=== PATIENT | male | born 1965 | race Caucasian/White ===

== ENCOUNTER 2024-11-18 06:57 | Observation (INO) | payer MEDICAID, SELFPAY ==
[2024-11-18] VITALS (14 sets, daily range): BP systolic 120–195; BP diastolic 75–116; PULSE 65–104; RESP 15–96; TEMP 36.5–37.7; O2SAT 94–98; BMI 36.0
--- NOTE | 2024-11-18 07:41 | XR_ITS ---
Examination: CT abdomen and pelvis without contrast. Coronal 3-D reconstructions. Sagittal 2-D reconstructions. Date and time of exam:November 18, 2024,, 0908 hours INDICATIONS: Left-sided abdominal pain flank pain with nausea today CTDI: vol (mGy): 13.4 DLP: (mGycm): 945 Technique: Axial images of the abdomen have been obtained, 3 mm slice thickness Intravenous contrast material has not been administered. Low dose protocols were performed. One or more of the following dose reduction techniques were used; automated exposure control, adjustment of the mA and/or KV according to patient size, use of iterative reconstruction technique. Findings: Fatty infiltration throughout the liver. Liver or splenic lesions No gallstones No pancreatic mass No renal calculi, masses The entire right colon shows inflammatory change Possible appendicolith No bowel obstruction No diverticulitis Transpedicular the pelvis Contracted urinary bladder Advanced disc narrowing of L3-L4 IMPRESSION: Recommend repeat CT examination abdomen pelvis post contrast to exclude acute appendicitis
--- NOTE | 2024-11-18 07:41 | XR_ITS ---
Examination: Abdomen sonogram, Limited Date and time of exam: November 10, 2024, 0810 hours INDICATIONS: Right upper abdominal pain this week Technique: Real-time schumacher scale transabdominal sonographic images of the upper abdomen obtained. Findings: Gallbladder sludge, small gallstones Normal gallbladder wall 0.3 cm Common bile duct 0.4 cm Pancreas obscured by bowel gas Hepatomegaly 21.8 cm fatty infiltration Normal hepatopedal portal venous flow Patent IVC IMPRESSION: Cholelithiasis, negative for cholecystitis Significant hepatomegaly
--- NOTE | 2024-11-18 07:42 | PD.EDRME ---
Rapid Medical Screening Exam RME Arrival date/time: 11/18/24 06:57 59-year-old male presents to the Emergency Department today for complaint of nausea vomiting abdominal pain Chief Complaint: Abdominal Pain Vital signs: Vital Signs Temperature 98.8 F 11/18/24 07:38 Pulse Rate 100 11/18/24 07:38 Respiratory Rate 18 11/18/24 07:38 Blood Pressure 195/104 H 11/18/24 07:38 Pulse Oximetry (%) 98 11/18/24 07:38 Oxygen Delivery Method Room Air 11/18/24 07:38
[2024-11-18] MEDS: KETOROLAC INJ 30 MG/ML VIAL IM (07:52)
[2024-11-18] MEDS: METOCLOPRAMIDE INJ 5 MG/ML VIAL 2 ML 10 MG IM (07:54)
[2024-11-18 08:53] LABS: Collection Type, Urine Clean Catch
[2024-11-18 09:02] LABS: Bilirubin,Urine Negative (Negative); Blood,Urine Negative (Negative); Clarity,Urine Clear (Clear/Hazy); Color,Urine Yellow (Lt Yel-Yel); Culture Indicated,Urine Not Indicated; Glucose, Urine Negative (Negative); Ketones,Urine Negative (Negative); Leukocyte Esterase,Urine Negative (Negative); Nitrite,Urine Negative (Negative); PH,Urine 5.5 (5.0-7.0); Protein,Urine Trace (Neg - Trace); RBC,Urine 2 /hpf (0-3); Specific Gravity,Urine 1.032 (1.001-1.035); Squamous Epithelial Cell,Urine < 1 /hpf (0-5); Urobilinogen,Urine Negative mg/dL (0.0-1.0); WBC,Urine 1 /hpf (0-5)
[2024-11-18 09:30] LABS: Basophils # (Auto) 0.0 Thou/mm3 (0.0-0.2); Basophils % (Auto) 0 % (0-2.5); Eosinophils # (Auto) 0.0 Thou/mm3 (0.0-0.5); Eosinophils % (Auto) 0 % (0-10); Hematocrit 42.7 % (41.0-53.0); Hemoglobin 15.0 g/dL (13.5-16.0); Immature Granulocytes Auto 0.04 Thou/mm3 (0.00-0.00); Lymphocytes # (Auto) 0.6 Thou/mm3 (1.0-4.8); Lymphocytes % (Auto) 6 % (10-50); Mean Corpuscular HGB Conc 35.1 g/dl (31.0-37.0); Mean Corpuscular Hemoglobin 31.8 pg (25.0-35.0); Mean Corpuscular Volume 91 fL (80-100); Monocytes # (Auto) 0.8 Thou/mm3 (0.0-0.8); Monocytes % (Auto) 8 % (0-12); Neutrophils # (Auto) 9.4 Thou/mm3 (1.8-7.7); Neutrophils % (Auto) 86 % (37-80); Nucleated Red Blood Cell # 0.00 Thou/mm3 (0.00-0.00); Nucleated Red Blood Cell % 0 /100 WBC (0); Platelet Count 209 Thou/mm3 (140-440); RDW Standard Deviation 41.0 fL (35.1-43.9); Red Blood Count 4.72 Miln/mm3 (4.50-5.90); White Blood Count 10.9 Thou/mm3 (3.8-10.6)
[2024-11-18 09:53] LABS: Alanine Aminotransferase 14 U/L (10-49); Albumin, Serum 4.4 gm/dL (3.5-5.0); Albumin/Globulin Ratio 1.8 (1.2-2.2); Alkaline Phosphatase 107 U/L (46-116); Anion Gap 10 (7-16); Aspartate Amino Transferase 15 U/L (0-34); BUN/Creatinine Ratio 18 Ratio (12-20); Bilirubin,Total 0.7 mg/dL (0.3-1.2); Blood Urea Nitrogen 14 mg/dL (9-23); Calcium 9.8 mg/dL (8.3-10.6); Calcium (Corrected) 9.8 mg/dL (8.5-10.1); Carbon Dioxide 23.5 mMol/L (20.0-31.0); Chloride 104 mMol/L (98-107); Creatinine (Component) 0.8 mg/dL (0.6-1.3); Estimated Creatinine Clearance 137.1 mL/min (>60); Globulin 2.4 gm/dL (2.3-3.5); Glucose 126 mg/dL (74-106); Lipase 25 U/L (12-53); Osmolality,Calculated 276 (275-295); Potassium 3.9 mMol/L (3.4-5.1); Sodium 137 mMol/L (136-145); Total Protein 6.8 gm/dL (5.7-8.2); eGFR > 60 See Note
--- NOTE | 2024-11-18 11:36 | XR_ITS ---
Examination: CT abdomen with intravenous contrast CT pelvis with intravenous contrast 2-D coronal reconstructions 2-D sagittal reconstructions Date and time of exam:November 18, 2024, 1253 hours, comparison November 18, 2024 0911 hours noncontrast study INDICATIONS: Right lower abdominal pain beginning today. CTDI: vol (mGy) 13.4 DLP: (mGycm) 981 Technique: Multiple axial sections of the abdomen and pelvis have been obtained. 64 slice high-resolution scanner used. 3 mm axial sections have been obtained, post intravenous injection 60 cc [id number]-[id number] 2-D sagittal, coronal reconstructions obtained. Low dose protocols were performed. One or more of the following dose reduction techniques were used; automated exposure control, adjustment of the mA and/or KV according to patient size, use of iterative reconstruction technique. Findings: No focal liver or splenic lesions No gallstones No pancreatic or adrenal mass Retrocecal acute appendicitis with localized perforation, axial images 138 120 No bowel obstruction Mild free fluid in the pelvis but no pelvic abscess Bladder intact IMPRESSION: Acute appendicitis with localized perforation No pelvic abscess
--- NOTE | 2024-11-18 11:40 | PD.EDABDPN ---
ED Abdominal Pain RME/HPI General Chief Complaint: Abdominal Pain Stated complaint: R SIDE ABD PAIN Time seen by provider: 11/18/24 10:23 Arrival date/time: 11/18/24 06:57 RME / HPI RME / HPI narrative: 59-year-old male presents to the Emergency Department today for complaint of nausea vomiting abdominal pain. Onset of symptoms since yesterday's right lower quadrant pain, described as sharp pain, severity moderate. Patient also complained of low-grade fever. Also complained of generalized body weakness. Also complained of nausea and vomiting. Denies any fever. Denies any other complaints. No medications taken prior to arrival. Related Data Allergies Allergy/AdvReac Type Severity Reaction Status Date / Time No Known Allergies Allergy Verified 11/18/24 07:00 Review of Systems Review of Systems Narrative Review of Systems: Review of system reviewed and within normal limits except mentioned in HPI ED Exam Narrative Physical exam: VITAL SIGNS: Reviewed. GENERAL APPEARANCE: Alert and interactive, follows commands, no acute distress, HEAD AND FACE: Non-traumatic. ENT: PERRL, pink conjunctivitis, eyelid no trauma, Mucous membrane moist. NECK: Supple, nontender, no nuchal rigidity. CHEST: No tenderness, no crepitus, no paradoxical movement, no retractions. LUNGS: Clear, well ventilated, symmetric, no rales, no wheezing, no ronchi, no stridor, good breath sounds bilaterally. HEART: Regular rate, regular rhythm, no murmur, no gallops. ABDOMEN: Soft, positive bowel sounds, nondistended, no guarding, right lower quadrant tenderness, no rebound, no masses, RECTAL: Deferred. GENITAL: Deferred. NEUROLOGICAL: Gross motor function intact sensory function intact, Appropriate for age. MUSCULOSKELETAL: low back nontender, full range of motion. EXTREMITIES: Nontender, full range of motion. SKIN: Color pink, dry, no rash, no lacerations, no abrasions, no contusions. LYMPHATICS: Deferred. Course Quality Measures none Orders Category Date Time Status Bedside COVID-19 Antigen Test NOW Care 11/18/24 07:42 Active Bedside Influenza A&B Antigen Test NOW Care 11/18/24 07:42 Completed COVID-19 Screening Questionnaire NOW Care 11/18/24 13:29 Active COVID-19 Screening Questionnaire NOW Care 11/18/24 14:[address] Screening NOW Care 11/18/24 11:36 Active Decision to Admit X1 Care 11/18/24 13:29 Completed Decision to Admit X1 Care 11/18/24 14:12 Active Insert IV NOW Care 11/18/24 12:01 Active Consult to General Surgery Stat Cons 11/18/24 13:[address] abdomen pelvis w con Stat Exams 11/18/24 11:[address] abdomen pelvis wo con Stat Exams 11/18/24 07:41 Completed US gall bladder Stat Exams 11/18/24 07:41 Completed CBC Stat Lab 11/18/24 09:04 Completed Comprehensive Metabolic Panel Stat Lab 11/18/24 09:04 Completed Lipase Stat Lab 11/18/24 09:04 Completed UA, C/S IF [Urinalysis, C/S if Indicated] Stat Lab 11/18/24 08:35 Completed HYDROcodone*/APAP 5/325 [[place] 5/325] Med 11/18/24 10:22 Discontinued 1 tab PO X1 ONE Ketorolac Inj [Toradol Inj] Med 11/18/24 07:41 Discontinued 30 mg IM X1 ONE Labetalol IV [Trandate IV] Med 11/18/24 11:37 Discontinued 10 mg IVP X1 ONE Metoclopramide Inj [Reglan Inj] Med 11/18/24 07:41 Discontinued 10 mg IM X1 ONE Morphine Inj Med 11/18/24 11:36 Discontinued 4 mg IVP X1 ONE Ondansetron Inj [Zofran Inj] Med 11/18/24 11:36 Discontinued 4 mg IVP X1 ONE Piper/Tazo 3.375 gm Premix [Zosyn] Med 11/18/24 13:25 Discontinued 3.375 gm in 50 ml IV X1 Ringers Lactated 1000 ml [Lactated Ringers] 1,000 ml Med 11/18/24 11:36 Discontinued IV 999 mls/hr Vital Signs Vital signs: Vital Signs Temperature 98.8 F 11/18/24 07:38 Pulse Rate 100 11/18/24 07:38 Respiratory Rate 18 11/18/24 07:38 Blood Pressure 195/104 H 11/18/24 07:38 Pulse Oximetry (%) 98 11/18/24 07:38 Oxygen Delivery Method Room Air 11/18/24 07:38 Abdominal Pain MDM MDM Narrative MDM Narrative:: 59-year-old male presents to the Emergency Department today for complaint of nausea vomiting abdominal pain. Onset of symptoms since yesterday's right lower quadrant pain, described as sharp pain, severity moderate. Patient also complained of low-grade fever. Also complained of generalized body weakness. Also complained of nausea and vomiting. Denies any fever. Denies any other complaints. No medications taken prior to arrival. CBC shows slight leukocytosis 10.9. CT scan of the abdomen pelvis showed acute appendicitis with localized perforation. Patient also tested positive for influenza A and B Patient received IV fluids, morphine, Zofran, and IV Zosyn. Was also given IV labetalol. Spoke with general surgeon Dr. Dial, who asked me to asked the hospitalist to admit. I spoke with hospitalist who admitted the patient. Patient data External records reviewed:: None Clinical information provided by:: patient and family Social determinants that could affect healthcare access:: none Patient has the following chronic illnesses:: None How is presenting disease/condition affected by chronic disease/condition?: no chronic disease Evaluation data The following diagnostics were reviewed and interpreted by me:: lab results and radiology exam(s) Lab and/or radiology exams considered but not ordered:: None Interpretation Summary: See results MDM Medications / Prescriptions Medications or Prescriptions considered but not ordered:: none Medication administrations:: Medication Administration History Discontinued Medications Hydrocodone Bitart/Acetaminophen (Hydrocodone/Apap 5/325 Tablet) 1 tab PO X1 ONE Stop: 11/18/24 10:23 Lactated Ringer's (Lactated Ringers) 1,000 mls @ 999 mls/hr IV .Q1H1M ONE Stop: 11/18/24 12:36 Piperacillin/Tazobactam/Dextrose (Zosyn) 3.375 gm in 50 mls @ 100 mls/hr IV X1 ONE Stop: 11/18/24 13:54 Ketorolac Tromethamine (Ketorolac Inj 30 Mg/Ml Vial) 30 mg IM X1 ONE Stop: 11/18/24 07:42 Last Admin: 11/18/24 07:52 Dose: 30 mg Documented By: NCIO Labetalol HCl (Labetalol Inj 5 Mg/Ml Vial 20 Ml) 10 mg IVP X1 ONE Stop: 11/18/24 11:38 Metoclopramide HCl (Metoclopramide Inj 5 Mg/Ml Vial 2 Ml) 10 mg IM X1 ONE; Protocol Stop: 11/18/24 07:42 Last Admin: 11/18/24 07:54 Dose: 10 mg Documented By: AA Morphine Sulfate (Morphine Sulf Inj 10 Mg/Ml Vial) 4 mg IVP X1 ONE Stop: 11/18/24 11:37 Last Admin: 11/18/24 12:06 Dose: 4 mg Documented By: DB Ondansetron HCl (Ondansetron Inj 2 Mg/Ml Inj 2 Ml) 4 mg IVP X1 ONE; Protocol Stop: 11/18/24 11:37 Last Admin: 11/18/24 12:05 Dose: 4 mg Documented By: DB IV fluids, Zofran morphine, Reglan, and IV Zosyn IV labetalol Consultations Consultation(s) initiated? (list below): Yes Consultation #1 (Physician, Specialty, Details): General surgeon on-call, Dr Dial, thank you DrAshish Diagnosis Differential diagnosis abdominal pain: abdominal pain, acute appendicitis, gastroenteritis and small bowel obstruction Most likely diagnosis given after review of the tests above:: Acute appendicitis Admission Indicated Admission indicated?: indicated Admission Request Was there a request for admission?: No Disposition Plan Disposition Plan: Admit Discharge Plan Plan Patient Disposition: Admit Acute Care w/in Hospital Prescriptions/Referrals Referrals: Che Davis PA-C [Primary Care Provider] - In 1 week Problem List Clinical Impression: Acute appendicitis Patient/Caregiver Discharge Instructions Print Language: [place] Stand Alone Forms: Hilda Award Info., Patient Portal Info Letter
[2024-11-18] MEDS: ONDANSETRON INJ 2 MG/ML INJ 2 ML 4 MG IVP (12:05)
[2024-11-18] MEDS: MORPHINE SULF INJ 10 MG/ML VIAL 4 MG IVP (12:06)
[2024-11-18] MEDS: HYDROcodone/APAP 5/325 TABLET 1 TAB PO (14:21)
[2024-11-18] MEDS: PIPER/TAZO 3.375 GM PREMIX 3.375 GM/50 ML BAG IV ×2 (14:21→21:16)
--- NOTE | 2024-11-18 14:40 | PD.SURCONS ---
HPI Consult details History of present illness: 59M presenting with abdominal pain. Pt reports he has severe chronic back pain related to spondylosis so he initially did not think much when he began having abdominal pain five days ago, however it worsened yesterday prompting him to seek care in ER. Associated with nausea/vomiting, no known fevers and last meal was yesterday evening. In ER pt has had a TMax of 99.9, WBC 10.9 with left shift and CT shows appendicitis with localized perforation. At the moment pt states pain is 8.5/10 and he is having anorexia Pt has not had a colonoscopy but did a stool test his PCP ordered 2 weeks ago and was advised it was negative PMH: Spondylosis PSHx: Finger and jaw surgeries Meds: Meloxicam, nexium Allergies: NKDA Social hx: quit smoking cigarettes 3 years ago, uses cannabis Review of Systems Review of Systems ROS Unobtainable: All systems reviewed & no additional complaints except as documented Meds Home Medications and Allergies Allergies Allergy/AdvReac Type Severity Reaction Status Date / Time No Known Allergies Allergy Verified 11/18/24 07:00 Exam Vital Signs Temp Pulse Resp BP Pulse Ox O2 Del Method 99.6 F 86 17 141/87 H 96 Room Air 11/18/24 13:04 11/18/24 14:31 11/18/24 14:31 11/18/24 14:31 11/18/24 14:31 11/18/24 14:31 Constitutional Constitutional: no acute distress Routine Respiratory Exam Respiratory: Present no resp distress Routine Abdominal Exam Abdominal: Present soft and tenderness (moderate RLQ tenderness, +Rovsing's sign); Absent distended, rebound or guarding Results Results: Laboratory Laboratory results: results reviewed Results: Imaging CT scan - abdomen: report reviewed and image reviewed Assessment & Plan Plan 59M with chronic back pain due to spondylosis presenting with several-day history of abdominal pain and findings consistent with appendicitis with perforation. I explained the alternatives to/benefits/risks of surgery including the possibility the appendix is too walled off for safe removal, bleeding, infection, need for conversion to open, injury to nearby structures and postoperative hernia. Pt expressed understanding and prefers to proceed with surgery IV abx OR for diagnostic laparoscopy, possible appendectomy, washout, possible drain placement
[2024-11-18] MEDS: RINGERS LACTATED 1000 ML 1,000 ML 999 ML IV (14:53)
--- NOTE | 2024-11-18 16:16 | ESHP_ITS ---
<Statement entered by Ashlyn Jasso MD - 11/18/24 17:57> I have reviewed the note and agree with the resident's assessment & plan with exceptions as below. I have personally reviewed labs, imaging, home meds/prior records, examined the patient, formulated and discussed management plan with the IM team. Patient examined at bedside today. Patient coming in for evaluation of acute appendicitis, general surgery on consult, Dr. Dial, patient is currently n.p.o., will go for surgery. Continue broad-spectrum antibiotics, multimodal pain management, and antiemetics. Repeat chemistry and hematology in the a.m. Cardiac stratification. Ashlyn Jasso, PGY-2 Internal Medicine Documentation for date of: 11/18/24 HPI History of Present Illness Chief complaint: Abdominal Pain History of present illness: 59 y/o male with PMH of chronic back pain presented to the ED today for severe abdominal pain. Pain is associated with nausea and vomiting. Pain initially started last Friday and got significantly worse today prompting patient to come to the ED. On presentation the pain was 8/10 and now 5/10. Patient has never had pain like this. Patient notes that the pain radiates to the back, and it feels like a muscle spasm in the lower right back (abdominal pain > back pain). Patient denies any fever chills, chest pain or shortness of breath. ED course: WBC: 10.9, other CBC and CMP umremarkable. CT Abdomen/Pelvis: Acute appendicitis with localized perforation Galbladder US: Cholelithiasis, negative for cholecystitis Tx: Zosyn, Morphine and Toradol, Labetalol Surgery consulted, seen by Dr. Dial, surgery planned for tonight. PMH: Chronic back pain from spondylosis and bone spurs. PSH: Right hand/finger debriment due to infection in 1990. Jaw cyst removal surgery about 20 years ago. Med: Meloxicam and Ibuprofen for back pain. FHx: Extensive history of diabetes, heart disease and kidney failure from dad side. Social: Lives with in [place]. Works in construction. Rarely drinks alcohol. Quit smoking 2 years ago but has a 20-30 pack year history. Smokes marijuana about 1 joint daily. No other recreational drug use. Code: Full Review of Systems Review of Systems Systems Reviewed: All systems reviewed, normal except as documented Exam Vital Signs Temp Pulse Resp BP Pulse Ox O2 Del Method 99.6 F 86 17 141/87 H 96 Room Air 11/18/24 13:04 11/18/24 14:31 11/18/24 14:31 11/18/24 14:31 11/18/24 14:31 11/18/24 14:31 Narrative Exam General: Patient is fully alert and oriented. In no acute distress as the pain is better controlled now. Cardio: RRR, no mumurs, gallops or rubs appreciated. Resp: Normal lung sounds MSK: Low back pain when patient asked to sit, no other muscle or joint pain. GI: Diffuse abdominal tenderness, most prominent in right lower quadrant. Rovsing and mcburnery sign positive. Extremities: No presence of trace or pitting edema in lower extremities bilaterally, dorsalis pedis pulses +2 bilaterally Neuro: AAOx3, no focal motor or sensory deficits in the UE or LE bilat Psych: Good judgement, thought and behavior. Cooperative Results: Labs 11/19/24 05:18 11/19/24 05:18 Labs: Short CBC 11/18/24 Range/Units 09:04 WBC 10.9 H (3.8-10.6) Thou/mm3 Hgb 15.0 (13.5-16.0) g/dL Hct 42.7 (41.0-53.0) % Plt Count 209 (140-440) Thou/mm3 BMP 11/18/24 09:04 Sodium 137 Potassium 3.9 Chloride 104 Carbon Dioxide 23.5 BUN 14 Creatinine 0.8 Glucose 126 H Calcium 9.8 Liver Function 11/18/24 Range/Units 09:04 Total Bilirubin 0.7 (0.3-1.2) mg/dL AST 15 (0-34) U/L ALT 14 (10-49) U/L Alkaline Phosphatase 107 (46-116) U/L Albumin 4.4 (3.5-5.0) gm/dL Urine 11/18/24 Range/Units 08:35 Urine Color Yellow (Lt Yel-Yel) Urine Clarity Clear (Clear/Hazy) Urine pH 5.5 (5.0-7.0) Ur Specific [place] 1.032 (1.001-1.035) Urine Protein Trace (Neg - Trace) Urine Glucose (UA) Negative (Negative) Quality Measures Quality Measures none Medications Home Medications and Allergies Home Medications ?Medication ?Instructions ?Recorded ?Confirmed ?Type meloxicam 15 mg tablet 15 mg PO .qod 11/18/2411/18 History Allergies Allergy/AdvReac Type Severity Reaction Status Date / Time No Known Allergies Allergy Verified 11/18/24 07:00 Visit Medications Acetaminophen (Acetaminophen 325 Mg Tablet) 650 mg PO Q6H PRN PRN Reason: Fever >101.5 Stop: 12/18/24 15:21 Acetaminophen (Acetaminophen 325 Mg Tablet) 650 mg PO Q6H PRN PRN Reason: PAIN SCALE 1-3 (mild Stop: 12/18/24 15:21 Hydrocodone Bitart/Acetaminophen (Hydrocodone/Apap 5/325 Tablet) 1 tab PO Q4HR PRN PRN Reason: PAIN SCALE 4-6 (Moderate Stop: 11/23/24 15:34 Sodium Chloride (Ns) 1,000 mls @ 75 mls/hr IV .[id number] [facility] Stop: 11/19/24 05:04 Piperacillin/Tazobactam/Dextrose (Zosyn) 3.375 gm in 50 mls @ 12.5 mls/hr IV Q8HR [facility] Stop: 11/25/24 20:59 Morphine Sulfate (Morphine Sulf Inj 10 Mg/Ml Vial) 1 mg IVP Q4H PRN PRN Reason: PAIN SCALE 7-10 (Severe Stop: 11/23/24 15:34 Ondansetron HCl (Ondansetron Inj 2 Mg/Ml Inj 2 Ml) 4 mg IVP Q6H PRN; Protocol PRN Reason: NAUSEA OR VOMITING Stop: 12/18/24 15:21 Pantoprazole Sodium (Pantoprazole 40 Mg Tablet) 40 mg PO QDAY [facility] Stop: 12/19/24 08:59 Discontinued Medications Hydrocodone Bitart/Acetaminophen (Hydrocodone/Apap 5/325 Tablet) 1 tab PO X1 ONE Stop: 11/18/24 10:23 Last Admin: 11/18/24 14:21 Dose: 1 tab Lactated Ringer's (Lactated Ringers) 1,000 mls @ 999 mls/hr IV .Q1H1M ONE Stop: 11/18/24 12:36 Last Admin: 11/18/24 14:53 Dose: 999 mls/hr Piperacillin/Tazobactam/Dextrose (Zosyn) 3.375 gm in 50 mls @ 100 mls/hr IV X1 ONE Stop: 11/18/24 13:54 Last Infusion: 11/18/24 14:55 Dose: Infused Piperacillin/Tazobactam/Dextrose (Zosyn) 3.375 gm in 50 mls @ 100 mls/hr IV X1 ONE Stop: 11/18/24 20:59 Ketorolac Tromethamine (Ketorolac Inj 30 Mg/Ml Vial) 30 mg IM X1 ONE Stop: 11/18/24 07:42 Last Admin: 11/18/24 07:52 Dose: 30 mg Labetalol HCl (Labetalol Inj 5 Mg/Ml Vial 20 Ml) 10 mg IVP X1 ONE Stop: 11/18/24 11:38 Metoclopramide HCl (Metoclopramide Inj 5 Mg/Ml Vial 2 Ml) 10 mg IM X1 ONE; Protocol Stop: 11/18/24 07:42 Last Admin: 11/18/24 07:54 Dose: 10 mg Morphine Sulfate (Morphine Sulf Inj 10 Mg/Ml Vial) 4 mg IVP X1 ONE Stop: 11/18/24 11:37 Last Admin: 11/18/24 12:06 Dose: 4 mg Ondansetron HCl (Ondansetron Inj 2 Mg/Ml Inj 2 Ml) 4 mg IVP X1 ONE; Protocol Stop: 11/18/24 11:37 Last Admin: 11/18/24 12:05 Dose: 4 mg Assessment & Plan Plan Assessment 59 y/o male with PMH of chronic back pain, presenting with severe abdominal pain. Admitted for apendicitis. #Acute Appendicitis : RLQ abdominal pain for past 5-[address] abdominal pelvis showing appendicitis with perforation. Mcburney and ronsing sign positive. - Surgery consulted, appreciate recommedations - Appendectomy planned for tonight with Dr. Dial, Patient is placed NPO - IV Zozyn Q8H - Multimodal pain control #Nausea/Vomiting - Odansetron Q6H PRN - Management for underlying appendicitis as mentioned above. #Hypertension primary vs white coat syndrome: 185/116 at presentation, 155/98 last reading, could be chronic underlying and/or worsened due to pain. Patient mentioned it is usually not high at home and he is anxious to be at the hospital. - Continue monitoring Q4H - Outpatient management with PCP post discharge. Health Maintenance: Code Status: Full DVT Prophylaxis: SCDs GI Prophylaxis: Protonix Diet: NPO Enriquez: None Lines: PIV Supplemental O2: None Disposition: Med Surg Patient seen and care discussed with my attending physician, Dr. Villagran and my senior resident, Dr. Louisa Cuello, [facility] Attending Provider Attestation/Addendum I reviewed labs, imaging, EKG, home medications and prior available records. Face to face evaluation was performed by me. I have personally examined the patient and discussed assessment and plan with the IM team. I reviewed the resident note and agree with the plan with exceptions as below. Nausea and vomiting Right lower quadrant abdominal pain Acute appendicitis with likely perforation Elevated blood pressure Started IV Zosyn IV fluids Management of nausea/pain as needed Consults history who will plan for appendectomy
--- NOTE | 2024-11-18 18:52 | ESOP_ITS ---
Date of Procedure 11/18/24 Pre Op Diagnosis Perforated appendicitis Post Op Diagnosis Perforated appendicitis with diffuse peritonitis Procedure Diagnostic laparoscopy, washout, drain placement Findings Generalized peritonitis with pus in the right paracolic gutter and in the pelvis, adhesions of the omentum to the colon, appendix not definitively identified Procedure Description After discussion of risks and benefits including the possibility that the appendix could not be safely removed, patient was brought to the operating room, SCDs were placed and general anesthesia was induced. He received preoperative antibiotics and had urinated immediately prior to entering the operating room. He was prepped and draped in the usual sterile fashion. After timeout an infraumbilical incision was made with a #11 blade and the skin was elevated with towel clamps. The Veress needle was placed however it did not reach the peritoneum so was exchanged for a long Veress needle. Proper positioning was confirmed with a drop test and the abdomen was insufflated to 15 mmHg. The Veress needle was exchanged for a 5 mm camera using a long trocar using a Visiport technique. There were no signs of injury from the point of entry. 2 additional ports were placed under direct vision, 1 to 5 mm at the suprapubic region and one 5 mm in the left lower quadrant. The infraumbilical port was upsized to a 12 mm also under direct vision. Patient was placed in Trendelenburg with left side down. The right colon was noted omentum adherent to it and this was gently peeled back. I attempted to trace the taenia of the colon however there were no clear signs of the appendix. It did appear like it might have been adherent to the surface of the colon but it was so obliterated it was not amenable to safe removal. There was also pus noted in the right perihepatic space and right paracolic gutter, as well as medial to the gallbladder and in the pelvis. This pus was suctioned and irrigated. I placed a 15 [place] DARWIN drain through the left lower quadrant port with the sideholes in the right paracolic gutter. The drain was sutured to the skin using a 2-0 nylon. The infraumbilical fascia was closed with a 0 Vicryl suture using a Naseem-Jennifer. Pneumoperitoneum was released and the last port was removed. Incisions were irrigated and infiltrated with half percent Marcaine for a total of 30 cc. Incisions were closed with 4-0 Monocryl and reinforced with Dermabond. Patient was extubated and brought to PACU in stable condition Pathology / specimen None Estimated Blood Loss 10 Surgeon Delmi Dial MD Surgical Staff Operation Date: 11/18/24 15:45 Case Staff Anesthesiologist: Tyree Gonzalez RN First Assistant: Saba Lewis
--- NOTE | 2024-11-18 19:02 | SUR.PHASEI ---
1900 To PACU awake able to lift head off of pillow, following simple commands continue to monitor pt vital signs and status.
--- NOTE | 2024-11-18 20:04 | SUR.PHASEI ---
1939 Transfer to room 371 in stable condition, no complains, vitals stable, no change to abdomen dressings, at bedside.
[2024-11-18] MEDS: MORPHINE SULF INJ 10 MG/ML VIAL IVP (22:57)
[2024-11-19] VITALS (9 sets, daily range): BP systolic 117–170; BP diastolic 76–99; PULSE 63–82; RESP 18–98; TEMP 36.1–36.8; O2SAT 94–98
[2024-11-19] MEDS: HYDROcodone/APAP 5/325 TABLET 1 TAB PO ×4 (00:10→21:06)
[2024-11-19] MEDS: MORPHINE SULF INJ 10 MG/ML VIAL IVP (03:23)
[2024-11-19] MEDS: PIPER/TAZO 3.375 GM PREMIX 3.375 GM/50 ML BAG IV ×3 (05:17→21:05)
[2024-11-19 06:25] LABS: Basophils # (Auto) 0.0 Thou/mm3 (0.0-0.2); Basophils % (Auto) 0 % (0-2.5); Eosinophils # (Auto) 0.0 Thou/mm3 (0.0-0.5); Eosinophils % (Auto) 0 % (0-10); Hematocrit 38.2 % (41.0-53.0); Hemoglobin 13.0 g/dL (13.5-16.0); Immature Granulocytes Auto 0.08 Thou/mm3 (0.00-0.00); Lymphocytes # (Auto) 1.0 Thou/mm3 (1.0-4.8); Lymphocytes % (Auto) 7 % (10-50); Mean Corpuscular HGB Conc 34.0 g/dl (31.0-37.0); Mean Corpuscular Hemoglobin 31.0 pg (25.0-35.0); Mean Corpuscular Volume 91 fL (80-100); Monocytes # (Auto) 0.5 Thou/mm3 (0.0-0.8); Monocytes % (Auto) 4 % (0-12); Neutrophils # (Auto) 11.7 Thou/mm3 (1.8-7.7); Neutrophils % (Auto) 88 % (37-80); Nucleated Red Blood Cell # 0.00 Thou/mm3 (0.00-0.00); Nucleated Red Blood Cell % 0 /100 WBC (0); Platelet Count 190 Thou/mm3 (140-440); RDW Standard Deviation 40.9 fL (35.1-43.9); Red Blood Count 4.20 Miln/mm3 (4.50-5.90); White Blood Count 13.2 Thou/mm3 (3.8-10.6)
[2024-11-19 06:35] LABS: Glucose Estimated Average 111 mg/dL (80-131); Hemoglobin A1C 5.5 % Hgb (4.8-6.0)
[2024-11-19 06:57] LABS: INR 1.3 (0.9-1.3); Partial Thromboplastin Time 32.5 Seconds (22.0-36.0); Prothrombin Time 14.0 Seconds (9.0-12.2)
[2024-11-19 06:58] LABS: Alanine Aminotransferase 10 U/L (10-49); Albumin, Serum 4.0 gm/dL (3.5-5.0); Albumin/Globulin Ratio 1.8 (1.2-2.2); Alkaline Phosphatase 89 U/L (46-116); Anion Gap 8 (7-16); Aspartate Amino Transferase 13 U/L (0-34); BUN/Creatinine Ratio 14 Ratio (12-20); Bilirubin,Total 1.0 mg/dL (0.3-1.2); Blood Urea Nitrogen 11 mg/dL (9-23); Calcium 9.4 mg/dL (8.3-10.6); Calcium (Corrected) 9.4 mg/dL (8.5-10.1); Carbon Dioxide 25.7 mMol/L (20.0-31.0); Cardiac Risk Estimate 2.2 RATIO (4.0-6.7); Chloride 102 mMol/L (98-107); Cholesterol 92 mg/dL (132-200); Creatinine (Component) 0.8 mg/dL (0.6-1.3); Estimated Creatinine Clearance 137.1 mL/min (>60); Globulin 2.2 gm/dL (2.3-3.5); Glucose 145 mg/dL (74-106); HDL Cholesterol 42 mg/dL (40-60); LDL Cholesterol,Calculated 42 mg/dL (0-130); Magnesium 1.9 mg/dL (1.6-2.6); Osmolality,Calculated 274 (275-295); Phosphorous 2.6 mg/dL (2.4-5.1); Potassium 4.5 mMol/L (3.4-5.1); Sodium 136 mMol/L (136-145); Thyroid Stimulating Hormone 1.51 uIU/mL (0.55-4.78); Total Protein 6.2 gm/dL (5.7-8.2); Triglycerides 38 mg/dL (30-150); eGFR > 60 See Note
--- NOTE | 2024-11-19 08:25 | PC.NURSE ---
Initiated droplet precaution after noted on ER notes pt tested positive for flu. Charge nurse Alecia KELLY informed. Follow up was also done during infection staff rounding.
--- NOTE | 2024-11-19 08:36 | ESPR_ITS ---
Documented by User: Mala Smith 11/19/24 09:02 Documentation for date of: 11/19/24 Subjective Subjective Brief History: 59 y/o male with initial visit to the ED for suspected appendicitis is currently admitted into the hospital for observation 1 day post diagnositc laprascopy appendecomy, irrigation, and drainage placement. Narrative: Pt was seen at approximately 0800 hours to follow up post diagnositc laprascopic appendecomy, irrigation, and drainage placement. Pt currently has an appetite and reports of a generalized 4/10 abdominal pain near the surgical site, but has been able to tolerate walking overnight. As per pt, at least 2 cannister's worth of fluid was removed via drainage post surgery procedure. He also reports of resolution of his back pain post procedure. Pt currently has an appetite and reports burping, but denies any bowel movements nor passing gas. Exam Vital Signs Temp Pulse Resp BP Pulse Ox O2 Del Method O2 Flow Rate 97.1 F 70 19 124/90 H 97 Room Air 3 11/19/24 08:00 11/19/24 08:00 11/19/24 08:00 11/19/24 08:00 11/19/24 08:00 11/19/24 08:00 11/18/24 19:20 Additional findings Additional findings: General: Well nourished, well groomed, well mannered 59 yo man in no distress. GI: Pt's abdomen is non-distended and non-erythematous upon inspection. Diminished bowel sounds were auscultated. Abdomen is soft and mildly tender to palpation in all 4 quadrants. Surgical dressings were clean and intact - no puss, erythema, or swelling was appreciated. Upon inspection, approximately 40 mL of puss had collected in the drainage apparatus. Skin: No erythema, jaundice, or pallor appreciated. Cardio: No edema appreciated in all 4 extremities. Results Results: Laboratory Laboratory Narrative: All lab results have been received and reviewed. Assessment & Plan Assessment Additional comments: 59 y/o well mannered, conversational male with arrived to the ED with suspected acute appendicitis has been admited to the hospital for observation 1 day post diagnostic laproscopic appendectomy, irrigation, and drainage placement. Plan Continue course of [place] and antibiotics; discontinue morphine. Monitor for bowel movements or passing gas, and advance diet to solids if pt can tolerate. Remain in hospital for the remainder of the day and plan to d/c tomorrow. PROCEDURES: Procedures Diagnostic laparoscopy, washout, drain placement Documented by User: Delmi Dial MD 11/19/24 09:42 Subjective Subjective Narrative: Pt was seen at approximately 0800 to follow up post diagnostic laparoscopy, washout and drain placement. Pt currently has an appetite and reports improved abdominal pain, now /10 and resolved back pain. Pt currently has an appetite and reports burping, but denies any bowel movements nor passing gas. He has remained afebrile and DARWIN has been emptied twice with 50cc output recorded Exam Vital Signs Temp Pulse Resp BP Pulse Ox O2 Del Method O2 Flow Rate 97.1 F 70 19 124/90 H 97 Room Air 3 11/19/24 08:00 11/19/24 08:00 11/19/24 08:00 11/19/24 08:00 11/19/24 08:00 11/19/24 08:00 11/18/24 19:20 Constitutional Constitutional: no acute distress Routine Respiratory Exam Respiratory: Present no resp distress Routine Abdominal Exam Comments: Non-distended and non-erythematous, diminished bowel sounds.Soft and mildly tender to palpation in all 4 quadrants. Surgical dressings were clean and intact - no pus, erythema, or swelling. DARWIN with purulent output Assessment & Plan Assessment Additional comments: 59M who presented with perforated appendicitis now s/p diagnostic laparoscopy, washout and drain placement 11/18, recovering well overall Advance to regular diet Pain control with PO meds DCP for tomorrow if tolerating diet and pain well controlled
[2024-11-19] MEDS: OSELTAMIVIR 75 MG CAPSULE PO ×2 (09:19→21:05)
[2024-11-19] MEDS: PANTOPRAZOLE 40 MG TABLET PO (09:19)
[2024-11-19] MEDS: IBUPROFEN TAB 400 MG TABLET 800 MG PO (11:21)
--- NOTE | 2024-11-19 11:58 | PC.SS ---
Bryon Moeller is a 59 year-old male admitted to [place] for Appendicitis. SS conducted bedside contact with the patient to complete initial assessment and to discuss discharge planning, utilizing all appropriate precautions. Role and reason explained. Patient confirmed demographic information. Patient identifies his Sharri Moeller [phone] as his surrogate decision maker. Pt states he is able to complete all ADL?s independently. No need for any source of DME. Pts PCP is Dr. Davis. Pharmacy of choice is [facility]. Discharge options discussed and the pt wishes to return home.? Pt family will provide transport. No further intervention required at this time, oncology social worker would be available to address any further concerns. DC Plan: Home Contact: Sharri Address: Confirmed on face sheet PCP: Ryan
--- NOTE | 2024-11-19 15:12 | PC.SS ---
Rounding: Pending SX reccs, pt Flu + A&B, DC plan Home over weekend
--- NOTE | 2024-11-19 15:24 | ESPR_ITS ---
<Statement entered by Ashlyn Jasso MD - 11/19/24 16:07> I have reviewed the note and agree with the resident's assessment & plan with exceptions as below. I have personally reviewed labs, imaging, home meds/prior records, examined the patient, formulated and discussed management plan with the IM team. Pt examined at bedside. General surgery on consult, appreciate. Current drain output 200 cc~, will continue with drain outpatient as well. Continue with ambulation, multimodal pain control, and advancing diet. Initiating Tamiflu for positive Influenza A and B. Continue with IV Zosyn at this time. Anticipate discharge within the next 24-48 hours. Repeat hematology and chemistry in AM. Ashlyn Jasso, PGY-2 Internal Medicine Documentation for date of: 11/19/24 Subjective Subjective Interval history: 59 y/o male with past medical history of chronic back pain, admitted for ruptured appendicitis, s/p laproscopic appendectomy post op day 1. Appendectomy w/ Dr. Dial last night, found generalized peritonitis with pus in the right paracolic gutter and pelvis, adhesions of the omentum to colon, appendix not amendable to safe removal. Drain was placed. Surgery recommending observation today and possible discharge tomorrow. Patient was seen today morning at bedside. Patient eating breakfast and sitting comfortably. Back pain has completely resolved. He was annoyed that multiple people keep coming to ask him questions. Otherwise, was glad that the procedure is done, and his pain is improved. Drain canister was half full with Sanguineous fluids. Two full canisters drained overnight. Exam Vital Signs Temp Pulse Resp BP Pulse Ox O2 Del Method O2 Flow Rate 97.1 F 66 18 117/76 97 Room Air 3 11/19/24 12:11/19/24 12:11/19/24 12:11/19/24 12:11/19/24 12:11/19/24 12:11/18/24 19:20 Narrative Exam General: Patient is fully alert and oriented. In no acute distress as the pain is much improved. Cardio: RRR, no mumurs, gallops or rubs appreciated. Resp: Normal lung sounds MSK: No muscle or joint pain with movement or palpation. GI: No distension. Decreased bowel sounds. Mild abdominal tenderness diffusely, more prominant in RLQ and LUQ. Extremities: No presence of trace or pitting edema in lower extremities bilaterally, dorsalis pedis pulses +2 bilaterally Neuro: AAOx3, no focal motor or sensory deficits in the UE or LE bilat Psych: Good judgement, thought and behavior. Cooperative Objective Labs 11/20/24 04:32 11/20/24 04:32 Labs: Laboratory Results - last 24 hr 11/19/24 05:18 WBC 13.2 H RBC 4.20 L Hgb 13.0 L D Hct 38.2 L MCV 91 MCH 31.0 MCHC 34.0 RDW Std Deviation 40.9 Plt Count 190 Neut % (Auto) 88 H Lymph % (Auto) 7 L [place] % (Auto) 4 Eos % (Auto) 0 Baso % (Auto) 0 Neut # (Auto) 11.7 H Lymph # (Auto) 1.0 [place] # (Auto) 0.5 Eos # (Auto) 0.0 Baso # (Auto) 0.0 Immature Gran # (Auto) 0.08 H Absolute Nucleated RBC 0.00 Immature Gran % 1 H Nucleated RBC % 0 PT 14.0 H INR 1.3 APTT 32.5 Sodium 136 Potassium 4.5 D Chloride 102 Carbon Dioxide 25.7 Anion Gap 8 BUN 11 Creatinine 0.8 Estim Creat Clear Calc 137.1 eGFR > 60 BUN/Creatinine Ratio [address] Glu mg/dL 111 Hemoglobin A1c 5.5 Calculated Osmolality 274 L Calcium 9.4 Corrected Calcium 9.4 Phosphorus 2.6 Magnesium 1.9 Total Bilirubin 1.0 AST 13 ALT 10 Alkaline Phosphatase 89 Total Protein 6.2 Albumin 4.0 Globulin 2.2 L Albumin/Globulin Ratio 1.8 Triglycerides 38 Cholesterol 92 L LDL Cholesterol, Calc 42 HDL Cholesterol 42 Cholesterol/HDL Ratio 2.2 L TSH 1.51 Quality Measures Quality Measures none Assessment & Plan Assessment Current Active Medications: Generic Name Dose Route Start Last Admin Trade Name Freq PRN Reason Stop Dose Admin Acetaminophen 650 mg 11/18/24 15:22 Acetaminophen 325 Mg Tablet PO 12/18/24 15:21 Q6H PRN Fever >101.5 Acetaminophen 650 mg 11/18/24 15:22 Acetaminophen 325 Mg Tablet PO 12/18/24 15:21 Q6H PRN PAIN SCALE 1-3 (mild Hydrocodone Bitart/Acetaminophen 1 tab 11/19/24 09:45 11/19/24 13:29 Hydrocodone/Apap 5/325 Tablet PO 11/23/24 15:34 1 tab Q4HR PRN Administration PAIN SCALE 7-10 (Severe Albuterol/Ipratropium 3 ml 11/18/24 18:14 Albuterol/Ipratropium (Duoneb) Rt Eileen 3 Ml Nebu INH 11/19/24 18:13 Q4HRRT PRN SHORTNESS OF BREATH Piperacillin/Tazobactam/Dextrose 3.375 gm in 50 mls @ 12.5 mls/hr 11/18/24 21:00 11/19/24 13:28 Zosyn IV 11/25/24 20:59 12.5 mls/hr Q8HR CHAYA Administration Ibuprofen 800 mg 11/19/24 09:43 11/19/24 11:21 Ibuprofen Tab 400 Mg Tablet PO 12/19/24 09:42 800 mg Q8HR PRN Administration PAIN SCALE 4-6 (Moderate Ondansetron HCl 4 mg 11/18/24 15:22 Ondansetron Inj 2 Mg/Ml Inj 2 Ml IVP 12/18/24 15:21 Q6H PRN NAUSEA OR VOMITING Protocol Oseltamivir Phosphate 75 mg 11/19/24 09:00 11/19/24 09:19 Oseltamivir 75 Mg Capsule PO 11/26/24 08:59 75 mg BID CHAYA Administration Pantoprazole Sodium 40 mg 11/19/24 09:00 11/19/24 09:19 Pantoprazole 40 Mg Tablet PO 12/19/24 08:59 40 mg QDAY CHAYA Administration Plan Assessment 59 y/o male with PMH of chronic back pain, admitted with perforated appendicitis, post op day 1 laproscopic appendectomy. #Acute Appendicitis, s/p laproscopic appendectomy - RLQ abdominal pain for past 5-6 days. - CT abdomen/pelvis showed appendicitis with perforation. - Dr. Dial performed laproscopic appendectomy. - Cont monitoring CBC, CMP QD - Multimodal pain control - Cont IV Zosyn - In patient observation today, likely discharge tomorrow #Nausea/Vomiting : improved - Odansetron Q6H PRN #Hypertension primary vs white coat syndrome: Controlled 185/116 at presentation, 117/76 last reading, could be chronic underlying and/or worsened due to pain. Patient mentioned it is usually not high at home and he is anxious to be at the hospital. - Continue monitoring Q4H - Outpatient management with PCP post discharge. #Influenza A and B: patient denies any flu like symptoms - Initiated Tamiflu - Patient and educated on benefits of respiratory precautions, treatment. #Leukocytosis: WBC at 13.2, 10.9 yesterday. Likely reactive as patient is post op day 1. - Cont monitor CBC Health Maintenance: Code Status: Full DVT Prophylaxis: SCDs GI Prophylaxis: Protonix Diet: Regular En[place]: None Lines: Abdominal drain Supplemental O2: None Disposition: Med Surg Patient seen and care discussed with my attending physician, Dr. Villagran and my senior resident, Dr. Louisa Cuello, [facility] [place] Attending Provider Attestation/Addendum I reviewed labs, imaging, EKG, home medications and prior available records. Face to face evaluation was performed by me. I have personally examined the patient and discussed assessment and plan with the IM team. I reviewed the resident note and agree with the plan with exceptions as below. Nausea and vomiting Right lower quadrant abdominal pain Acute appendicitis with likely perforation Elevated blood pressure Started IV Zosyn IV fluids Management of nausea/pain as needed Trend WBC Status post diagnostic laparoscopy, abdominal washout and drain placement. Appendix was not well-visualized Surgery recommended to keep the drain
[2024-11-20] VITALS: BP 136/86; PULSE 78; PULSE 98; RESP 15; TEMP 36.4; O2SAT 97
[2024-11-20 04:00] VITALS: BP 151/98; PULSE 88; PULSE 91; RESP 18; TEMP 36; O2SAT 95
[2024-11-20] MEDS: IBUPROFEN TAB 400 MG TABLET 800 MG PO (05:06)
[2024-11-20] MEDS: PIPER/TAZO 3.375 GM PREMIX 3.375 GM/50 ML BAG IV (05:06)
[2024-11-20 05:10] LABS: Basophils # (Auto) 0.0 Thou/mm3 (0.0-0.2); Basophils % (Auto) 0 % (0-2.5); Eosinophils # (Auto) 0.2 Thou/mm3 (0.0-0.5); Eosinophils % (Auto) 1 % (0-10); Hematocrit 41.9 % (41.0-53.0); Hemoglobin 14.6 g/dL (13.5-16.0); Immature Granulocytes Auto 0.11 Thou/mm3 (0.00-0.00); Lymphocytes # (Auto) 1.7 Thou/mm3 (1.0-4.8); Lymphocytes % (Auto) 11 % (10-50); Mean Corpuscular HGB Conc 34.8 g/dl (31.0-37.0); Mean Corpuscular Hemoglobin 31.5 pg (25.0-35.0); Mean Corpuscular Volume 90 fL (80-100); Monocytes # (Auto) 0.8 Thou/mm3 (0.0-0.8); Monocytes % (Auto) 5 % (0-12); Neutrophils # (Auto) 13.3 Thou/mm3 (1.8-7.7); Neutrophils % (Auto) 83 % (37-80); Nucleated Red Blood Cell # 0.00 Thou/mm3 (0.00-0.00); Nucleated Red Blood Cell % 0 /100 WBC (0); Platelet Count 198 Thou/mm3 (140-440); RDW Standard Deviation 41.4 fL (35.1-43.9); Red Blood Count 4.64 Miln/mm3 (4.50-5.90); White Blood Count 16.1 Thou/mm3 (3.8-10.6)
[2024-11-20 05:47] LABS: Alanine Aminotransferase 10 U/L (10-49); Albumin, Serum 4.2 gm/dL (3.5-5.0); Albumin/Globulin Ratio 1.7 (1.2-2.2); Alkaline Phosphatase 96 U/L (46-116); Anion Gap 12 (7-16); Aspartate Amino Transferase 14 U/L (0-34); BUN/Creatinine Ratio 16 Ratio (12-20); Bilirubin,Total 0.6 mg/dL (0.3-1.2); Blood Urea Nitrogen 13 mg/dL (9-23); Calcium 9.6 mg/dL (8.3-10.6); Calcium (Corrected) 9.6 mg/dL (8.5-10.1); Carbon Dioxide 23.6 mMol/L (20.0-31.0); Chloride 103 mMol/L (98-107); Creatinine (Component) 0.8 mg/dL (0.6-1.3); Estimated Creatinine Clearance 137.1 mL/min (>60); Globulin 2.5 gm/dL (2.3-3.5); Glucose 120 mg/dL (74-106); Magnesium 1.8 mg/dL (1.6-2.6); Osmolality,Calculated 278 (275-295); Phosphorous 2.4 mg/dL (2.4-5.1); Potassium 3.9 mMol/L (3.4-5.1); Sodium 139 mMol/L (136-145); Total Protein 6.7 gm/dL (5.7-8.2); eGFR > 60 See Note
[2024-11-20 07:10] VITALS: PULSE 89; RESP 17; RESP 95
[2024-11-20 08:00] VITALS: BP 148/90; PULSE 78; PULSE 84; RESP 16; TEMP 36.1; O2SAT 95
[2024-11-20] MEDS: NAPH,KPH MBDB 1 PACKET (1.5 GM) 2 PACKET PO (08:27)
[2024-11-20] MEDS: OSELTAMIVIR 75 MG CAPSULE PO (08:27)
[2024-11-20] MEDS: PANTOPRAZOLE 40 MG TABLET PO (08:27)
--- NOTE | 2024-11-20 10:09 | PD.SURPROG ---
Documentation for date of: 11/20/24 Subjective Subjective Brief History: 59M presenting with abdominal pain. Pt reports he has severe chronic back pain related to spondylosis so he initially did not think much when he began having abdominal pain five days ago, however it worsened yesterday prompting him to seek care in ER. Associated with nausea/vomiting, no known fevers and last meal was yesterday evening. In ER pt has had a TMax of 99.9, WBC 10.9 with left shift and CT shows appendicitis with localized perforation. At the moment pt states pain is 8.5/10 and he is having anorexia Pt has not had a colonoscopy but did a stool test his PCP ordered 2 weeks ago and was advised it was negative PMH: Spondylosis PSHx: Finger and jaw surgeries Meds: Meloxicam, nexium Allergies: NKDA Social hx: quit smoking cigarettes 3 years ago, uses cannabis Narrative: Pain controlled, no nausea, passing gas and tolerating regular diet but has not yet had a BM. Remaining afebrile, WBC 16 from 13, DARWIN with 40cc output/24h Exam Vital Signs Temp Pulse Resp BP Pulse Ox O2 Del Method O2 Flow Rate 97.0 F 78 16 148/90 H 95 Room Air 3 11/20/24 08:00 11/20/24 08:00 11/20/24 08:00 11/20/24 08:00 11/20/24 08:00 11/20/24 08:00 11/18/24 19:20 Constitutional Constitutional: no acute distress Routine Respiratory Exam Respiratory: Present no resp distress Routine Abdominal Exam Abdominal: Present soft and drain (DARWIN with purulent output); Absent tenderness or distended Assessment & Plan Plan 59M who presented with perforated appendicitis now s/p diagnostic laparoscopy, washout and drain placement 11/18, recovering well overall Colace and miralax prn for constipation OK for dc from my standpoint with DARWIN in place to complete PO antibiotic course Will follow up in office on 11/25 PROCEDURES: Procedures Diagnostic laparoscopy, washout, drain placement
[2024-11-20] MEDS: DOCUSATE SOD 100 MG CAPSULE PO (10:28)
--- NOTE | 2024-11-20 11:22 | ESDS_ITS ---
<Statement entered by Ashlyn Jasso MD - 11/20/24 14:18> I have reviewed the note and agree with the resident's assessment & plan with exceptions as below. I have personally reviewed labs, imaging, home meds/prior records, examined the patient, formulated and discussed management plan with the IM team. Pt examined at bedside today. No acute overnight events. Pt cleared for medical discharge from surgery, Dr. Dial, with recommendations to follow up on d/c outpatient on 11/25. He will continue with drain outpatient and have it removed then. Will d/c with Percocet and Augmentin for 7 days. Pt was then discharged with the following discharge instructions listed below. Ashlyn Jasso, PGY-2 Internal Medicine Planned Discharge Date 11/20/24 DS: Providers Provider Date of admission: 11/18/24 14:15 Primary care physician: Che Davis PA-C Admitting Provider: Chandrakant Villagran MD Attending Provider on Admission: Chandrakant Villagran MD Consults: 11/18/24 13:31 Consult to General Surgery Stat Comment: Acute appendicitis Consulting Provider: Delmi Dial Attending Provider on DC: Mala Moore Discharging Provider: Mala Moore DS: Diagnosis Problem List Completed Was Problem List Reviewed/Reconciled?: Yes Hospital Course Hospital Course Hospital course: Bryon Moeller with past medical history of chronic back pain was admitted to [facility] on 11/18/24 for worsening abdominal pain, nausea, and vomiting. In the ED, patient was in severe sharp abdominal and lower right back pain, contributory vital were BP of 190/104 and HR of 100. CT abdomen showed acute appendicitis with perforation. Patient was given IV fluids, morphine, Zofran, IV Zosyn, and IV labetalol in the ED. Patient admitted for acute abdominal pain and imaging confirmed ruptured appendicitis. Dr. Dial performed diagnostic laparoscpy, washout, and drain placement. Pain was managed with Acetaminophen and hydrocodone, and patient received IV Zosyn Q8. Patient also received Tamiflu for positive Influenza A and B. Patient to be discharged and followed outpatient with PCP within a week and surgery on 11/25. Discharge instructions Follow-up with your PCP within 1 week Follow up with your General Surgeon, Dr. Dial, within one week of discharge Take your medicines as prescribed Return to ED if your symptoms worsen or return Problem List #Acute Appendicitis #Nausea/Vomiting #Hypertension #Influenza A and B #Leukocytosis #History of chronic back pain Discharge summary was reviewed with my attending Dr. Villagran and my senior resident Dr. Louisa Cuello, [facility] Status at Discharge Functional status at discharge: independent ambulation Overall status at discharge: patient is progressing back to baseline Time Spent with Patient Time attestation: Total time spent providing and/or coordinating discharge services: Time spent: Greater than 30 minutes Exam Vital Signs Temp Pulse Resp BP Pulse Ox O2 Del Method O2 Flow Rate 97.0 F 78 16 148/90 H 95 Room Air 3 11/20/24 08:00 11/20/24 08:00 11/20/24 08:00 11/20/24 08:00 11/20/24 08:00 11/20/24 08:00 11/18/24 19:20 Narrative Exam General: Patient is fully alert and oriented. In no acute distress. Cardio: RRR, no murmurs, gallops or rubs appreciated. Resp: Normal lung sounds. No wheezing, rales or stridor auscultated. MSK: No muscle or joint pain to any movement or palpation. GI: No distension. Soft to palpation. Mild abdominal tenderness to palpation in RLQ and LUQ. Extremities: No presence of trace or pitting edema in lower extremities bilaterally, dorsalis pedis pulses +2 bilaterally Neuro: AAOx3, no focal motor or sensory deficits in the UE or LE bilat Psych: Good judgement, thought and behavior. Cooperative Discharge Plan Plan Patient Disposition: HOME (Self Care) Patient condition on transfer: Stable Care Plan Goals: Discharge instructions Follow-up with your PCP within 1 week Follow up with your General Surgeon, Dr. Dial, within one week of discharge Take your medicines as prescribed Return to ED if your symptoms worsen or return Prescriptions/Referrals Prescriptions/Med Rec: New oxycodone-acetaminophen [Percocet] 5-325 mg tablet 1 tab PO Q8H MDD 3 tablets PRN (Reason: pain (scale score 7-10)) 7 Days Qty: 20 0RF Rx Instructions: Take one tablet by mouth up to three times a day amoxicillin-pot clavulanate 875-125 mg tablet 1 tab PO BID 7 Days Qty: 14 0RF Rx Instructions: Take one tablet by mouth twice a day Discontinued meloxicam 15 mg tablet 15 mg PO .qod Patient Comments: TAKE 1 TABLET BY MOUTH EVERY DAY Referrals: Che Davis PA-C [Primary Care Provider] - Delmi Dial MD [Physician] - (You will receive a phone call to confirm a follow-up appt with me on 11/25) Patient/Caregiver Discharge Instructions Discharge Activity: activity as tolerated Other Discharge Activity Instructions:: Cover drain while showering Empty drain at the same time daily and measure and record output Keep area clean and dry If you develop worsening pain, nausea/vomiting, fever or concerns about the incisions please feel free to call the office if during business hours at [phone] or seek care in ER Education Materials: What Is Appendicitis?, Surgery for Appendicitis, Preventing Surgical Site Infections, Surgical Drain Care Print Language: [place] Stand Alone Forms: Hilda Award Info., Patient Portal Info Letter Discharge Order Discharge Orders: Discharge (Routine); Ordered 11/20/24 Ordered By: Ashlyn Jasso Quality Discharge Quality Measures VTE prophylaxis Attestestation MD Attestation I reviewed labs, imaging, EKG, home medications and prior available records. Face to face evaluation was performed by me. I have personally examined the patient and discussed assessment and plan with the IM team. I reviewed the resident note and agree with the plan with exceptions as below. Nausea and vomiting Right lower quadrant abdominal pain Acute appendicitis with likely perforation Elevated blood pressure Influenza A/B Started IV Zosyn Gave IV fluids Management of nausea/pain as needed Trend WBC Status post diagnostic laparoscopy, abdominal washout and drain placement. Appendix was not well-visualized Surgery recommended to keep the drain until next appointment visit on 11/25 Will discharge on p.o. Augmentin for 7 days Pain management with Percocet for 7 days Surgery will write return to work in 6 weeks Time spent is 35 minutes. More than 50% of the time was spent on patient education and coordination of care.
== END 2024-11-20 11:03 | disposition home or self-care (01) ==
LOC: SERX 14:16 → S3SX 18:52 → SERHOLD 11-21 16:00 → S3SX 11-21 16:01
PROVIDERS: Nurse Practitioner Primary Care; Surgery; Admitting Provider Student in an Organized Health Care Education/Training Program; Emergency Provider Family Medicine; PCP Physician Assistant Medical; Visit Provider Student in an Organized Health Care Education/Training Program
PROC: 0DTJ4ZZ Resection of Appendix, Percutaneous Endoscopic Approach (ICD-10-PCS; CPT 44970; principal; 2024-11-18 15:30)
DX: K35.201 Acute appendicitis with generalized peritonitis, with perforation, without abscess (principal); I10 Essential (primary) hypertension; J10.1 Influenza due to other identified influenza virus with other respiratory manifestations; G89.29 Other chronic pain; M54.50 Low back pain, unspecified; Z87.891 Personal history of nicotine dependence
CPT/HCPCS: 49084; 36415; 74176; 74177; 76705; 80053; 80061; 81001; 83036; 83690; 83735; 84100; 84443; 85025; 85610; 85730; 87400; 87811; 93225; 94664; 96365; 96366; 96372; 96375; 96376; 99284; A4217; A4649; G0378; J0694; J1100; J1885; J2270; J2405; J2543; J2704; J2765; J3010; J3490; J7120; Q9967; A9270

== ENCOUNTER 2024-11-25 13:14 | Outpatient (AMB) | payer MEDICAID, SELFPAY ==
--- NOTE | 2024-11-25 13:32 | PD.GSCLVISIT ---
[facility] - [facility] 11/25/24 13:33 Height 1.85 m Height Method Stated Weight 123.916 kg Weight Measurement Method Standing Scale BMI 36.0 BP 139/92 H Blood Pressure Source Automatic Cuff Blood Pressure Location Right Upper Arm Position Sitting Respiration 18 Pulse 81 Pulse Source Monitor Temp 96.9 F Temp Source Temporal Artery Scan Pulse Oximetry (%) 98 Oxygen Delivery Method Room Air Med/Allergies Allergies & Medications Allergies No Known Allergies Allergy (Verified 11/25/24 13:34) Medication Reconciliation amoxicillin 875 mg-potassium clavulanate 125 mg tablet 1 tab PO BID 7 days #14 tabs 11/20/24 [Rx Confirmed 11/25/24] oxycodone-acetaminophen 5 mg-325 mg tablet (Percocet) 1 tab PO Q8H PRN pain (scale score 7-10) 7 days #20 tabs 11/20/24 [Rx Confirmed 11/25/24] oxycodone-acetaminophen 5 mg-325 mg tablet (Percocet) 1 tab PO Q4H PRN pain #30 tabs 11/25/24 [Rx] MA Intake Visit Data Collection New Patient or Established: Established Patient (seen at [facility] within 3 years) Reason for Visit:: POST OP APPENDICITIS Pain Present Currently: Yes Pain Location: Abdomen Pain scale:: 2 Pain Scale Used: Ceja-Davis/Numerical Curing Bin Operator Required: No PCP or OBGYN visit in last 3 months: Yes Hx Now: No Do You Feel Safe at Home: Yes Authorities Contacted: N/A Smoking Status Smoking Status: Never smoker Immunization / Flu Flu Vaccine in the Last 12 Months: No Flu Vaccine Exclusion Criteria: No Exclusion Criteria Past Medical History Past Medical History NEUROLOGIC: Negative Seizures CARDIAC: Negative Cardiac Disorders or Congestive Heart Failure RESPIRATORY: Negative Chronic Obstructive Pulmonary Disease (COPD) or Asthma GENITOURINARY: Negative Renal Disease ENDOCRINE: Negative Diabetes Mellitus Type 1 or Diabetes Mellitus Type 2 HEMATOLOGIC: Negative Sickle Cell Disease OTHER HISTORY: Negative Blood Transfusions, Blood Transfusion Reaction or Anesthesia Reactions Social History SMOKING STATUS: Smoking status: Never smoker LIVES WITH: Lives With: Family and Spouse Travel Risk Travel Hx Recent Travel: No HPI HPI Narrative 59M who presented with perforated appendicitis now s/p diagnostic laparoscopy, washout and drain placement 11/18 here for planned follow up. Pt reports feeling well overall, his pain is controlled with norco and he is eating well although feels he has overdone it at times. He denies any nausea or fever, has been having regular BMs and urinating without difficulty. His DARWIN has had 20-30cc of output daily since discharge, yesterday it was 15cc and today it was empty so he had not emptied it prior to arriving ROS Review of Systems Systems Reviewed: All systems reviewed, normal except as documented Objective/Exam General General Appearance: alert, cooperative and well groomed Resp Respiratory exam: Absent respiratory distress Abdominal Abdominal exam: Present soft and other (DARWIN with purulent output); Absent distention or tenderness Assessment & Plan Diagnosis / Problem List (1) Perforated appendicitis: Status: Acute Assessment & Plan: 59M who presented with perforated appendicitis now s/p diagnostic laparoscopy, washout and drain placement 11/18 here for planned follow up. Given the purulent nature of his DARWIN output I recommended leaving the drain in place and will follow up next week. Pt expressed understanding and is agreeable with this plan Office Procedures GNS Level of Care Nursing/Assessment Patient Status: Established Patient Nursing Assessment/Reassesment: Medication Reconciliation, Update PMH in EMR and Vital Signs Coordination of Care: Complex Care and Chronic Disease 1-5, Education Complex Pt/Fam, Consent,records obtained, informed consent, Results/Orders obtained and Staff clarify orders Established Patient Charge Established Patient Point Assignment: 95 Established Patient Point Charge: EP Level 3 (80-115) Patient Portal Questionaires Social History Tobacco History Smoking Status: Never smoker Domestic Abuse History Do You Feel Safe at Home: Yes Review of Systems Report any current symptoms Only answer those that you have currently: Past Medical History Past Medical History Have you ever been diagnosed with any of the following: Neurological Problems Seizures: No Cardiology Problems Congestive Heart Failure: No Respiratory Problems Chronic Obstructive Pulmonary Disease (COPD): No Asthma: No Genital/Urinary Problems Renal Disease: No Endocrine Problems Diabetes Mellitus Type 1: No Diabetes Mellitus Type 2: No Blood Problems Sickle Cell Disease: No Other Problems Blood Transfusions: No Blood Transfusion Reaction: No Anesthesia Reactions: No
[2024-11-25 13:33] VITALS: BP 139/92; PULSE 81; RESP 18; TEMP 36.1; O2SAT 98; BMI 36.0
== END 2024-11-25 13:37 | disposition home or self-care (01) ==
LOC: HODSRG 13:14
PROVIDERS: PCP Physician Assistant Medical; Referring Provider Physician Assistant Medical; Supervising Provider Surgery; Visit Provider Surgery
DX: Z48.815 Encounter for surgical aftercare following surgery on the digestive system (principal)
CPT/HCPCS: 99213; G0463

== ENCOUNTER 2024-12-02 11:29 | Outpatient (AMB) | payer MEDICAID, SELFPAY ==
[2024-12-02 11:35] VITALS: BP 149/92; PULSE 84; RESP 18; TEMP 36.7; O2SAT 94; BMI 35.9
--- NOTE | 2024-12-02 11:35 | PD.GSCLVISIT ---
[facility] - [facility] 12/02/24 11:35 Height 1.85 m Height Method Measured Weight 122.924 kg Weight Measurement Method Standing Scale BMI 35.9 BP 149/92 H Blood Pressure Source Automatic Cuff Blood Pressure Location Left Upper Arm Position Sitting Respiration 18 Pulse 84 Pulse Source Monitor Temp 98.0 F Temp Source Temporal Artery Scan Pulse Oximetry (%) 94 L Oxygen Delivery Method Room Air Med/Allergies Allergies & Medications Allergies No Known Allergies Allergy (Verified 12/02/24 11:36) Medication Reconciliation oxycodone-acetaminophen 5 mg-325 mg tablet (Percocet) 1 tab PO Q4H PRN pain #30 tabs 11/25/24 [Rx Confirmed 12/02/24] MA Intake Visit Data Collection New Patient or Established: Established Patient (seen at [facility] within 3 years) Seen by Clinical Staff ONLY (RN/MA): No Pain Present Currently: No Pain Scale Used: Ceja-Davis/Numerical Inspector Purchased Parts Required: No PCP or OBGYN visit in last 3 months: Yes Hx Now: No Do You Feel Safe at Home: Yes Authorities Contacted: N/A Smoking Status Smoking Status: Never smoker Immunization / Flu Flu Vaccine in the Last 12 Months: No Flu Vaccine Exclusion Criteria: No Exclusion Criteria Past Medical History Past Medical History NEUROLOGIC: Negative Seizures CARDIAC: Negative Cardiac Disorders or Congestive Heart Failure RESPIRATORY: Negative Chronic Obstructive Pulmonary Disease (COPD) or Asthma GENITOURINARY: Negative Renal Disease ENDOCRINE: Negative Diabetes Mellitus Type 1 or Diabetes Mellitus Type 2 HEMATOLOGIC: Negative Sickle Cell Disease OTHER HISTORY: Negative Blood Transfusions, Blood Transfusion Reaction or Anesthesia Reactions Social History SMOKING STATUS: Smoking status: Never smoker LIVES WITH: Lives With: Family and Spouse HPI HPI Narrative 59M who presented with perforated appendicitis now s/p diagnostic laparoscopy, washout and drain placement 11/18 here for planned follow up. Pt states since his last visit he had one day with 18cc drainage in 24h, but since then it has dramatically decreased and has been <1cc per day. He still feels well with pain controlled, not needing any medications, and is eating well and having regular BMs, remaining afebrile ROS Review of Systems Systems Reviewed: All systems reviewed, normal except as documented Objective/Exam General General Appearance: alert, cooperative and well groomed Resp Respiratory exam: Absent respiratory distress Abdominal Abdominal exam: Present soft and other (DARWIN drain with scant serous fluid, removed intact); Absent distention or tenderness Assessment & Plan Diagnosis / Problem List (1) Perforated appendicitis: Status: Acute Assessment & Plan: 59M who presented with perforated appendicitis now s/p diagnostic laparoscopy, washout and drain placement 11/18 here for planned follow up, recovering well now with drain removed. We discussed the possibility of interval appendectomy, pt expressed understanding and will follow up in 4 weeks Office Procedures GNS Level of Care Nursing/Assessment Patient Status: Established Patient Nursing Assessment/Reassesment: Medication Reconciliation, Orthostatic Vitals, Update PMH in EMR and Vital Signs Coordination of Care: Complex Care and Chronic Disease 1-5, Education Complex Pt/Fam, Consent,records obtained, informed consent, Results/Orders obtained and Staff clarify orders Established Patient Charge Established Patient Point Assignment: 105 Established Patient Point Charge: EP Level 3 (80-115) Patient Portal Questionaires Social History Tobacco History Smoking Status: Never smoker Domestic Abuse History Do You Feel Safe at Home: Yes Review of Systems Report any current symptoms Only answer those that you have currently: Past Medical History Past Medical History Have you ever been diagnosed with any of the following: Neurological Problems Seizures: No Cardiology Problems Congestive Heart Failure: No Respiratory Problems Chronic Obstructive Pulmonary Disease (COPD): No Asthma: No Genital/Urinary Problems Renal Disease: No Endocrine Problems Diabetes Mellitus Type 1: No Diabetes Mellitus Type 2: No Blood Problems Sickle Cell Disease: No Other Problems Blood Transfusions: No Blood Transfusion Reaction: No Anesthesia Reactions: No
== END 2024-12-02 11:49 | disposition home or self-care (01) ==
LOC: HODSRG 11:29
PROVIDERS: PCP Physician Assistant Medical; Referring Provider Physician Assistant Medical; Supervising Provider Orthopaedic Surgery Adult Reconstructive Orthopaedic Surgery; Visit Provider Orthopaedic Surgery Adult Reconstructive Orthopaedic Surgery
DX: Z48.815 Encounter for surgical aftercare following surgery on the digestive system (principal)
CPT/HCPCS: 99213; G0463

== ENCOUNTER 2024-12-30 09:21 | Outpatient (AMB) | payer MEDICAID, SELFPAY ==
[2024-12-30 09:28] VITALS: BP 163/90; PULSE 73; RESP 18; TEMP 36.2; O2SAT 98; BMI 37.2
--- NOTE | 2024-12-30 09:28 | PD.GSCLVISIT ---
[facility] Signs - [facility] 12/30/24 09:28 Height 1.85 m Height Method Measured Weight 127.488 kg Weight Measurement Method Standing Scale BMI 37.2 BP 163/90 H Blood Pressure Source Automatic Cuff Blood Pressure Location Left Upper Arm Position Sitting Respiration 18 Pulse 73 Pulse Source Monitor Temp 97.2 F Temp Source Temporal Artery Scan Pulse Oximetry (%) 98 Oxygen Delivery Method Room Air Med/Allergies Allergies & Medications Allergies No Known Allergies Allergy (Verified 12/30/24 09:35) Medication Reconciliation oxycodone-acetaminophen 5 mg-325 mg tablet (Percocet) 1 tab PO Q4H PRN pain #30 tabs 11/25/24 [Rx Confirmed 12/30/24] MA Intake Visit Data Collection New Patient or Established: Established Patient (seen at [facility] within 3 years) Seen by Clinical Staff ONLY (RN/MA): No Reason for Visit:: FOLLOW UP Pain Present Currently: No Pain Scale Used: Ceja-Davis/Numerical Hospital Insurance Clerk Required: No PCP or OBGYN visit in last 3 months: Yes Hx Now: No Do You Feel Safe at Home: Yes Authorities Contacted: N/A Smoking Status Smoking Status: Never smoker Immunization / Flu Flu Vaccine in the Last 12 Months: Yes Flu Vaccine Exclusion Criteria: Already Received Past Medical History Past Medical History NEUROLOGIC: Negative Seizures CARDIAC: Negative Cardiac Disorders or Congestive Heart Failure RESPIRATORY: Negative Chronic Obstructive Pulmonary Disease (COPD) or Asthma GENITOURINARY: Negative Renal Disease ENDOCRINE: Negative Diabetes Mellitus Type 1 or Diabetes Mellitus Type 2 HEMATOLOGIC: Negative Sickle Cell Disease OTHER HISTORY: Negative Blood Transfusions, Blood Transfusion Reaction or Anesthesia Reactions Social History SMOKING STATUS: Smoking status: Never smoker LIVES WITH: Lives With: Family and Spouse HPI HPI Narrative HISTORY OF PRESENT ILLNESS I, Delmi iDal, have obtained verbal consent from the patient, to be recorded during this encounter which may include, but not limited to, medical history, examination, treatment plans, and relevant health information.? Patient was informed that recording will be read and reviewed by myself before inclusion in the medical chart. The patient is here for a follow-up of diagnostic laparoscopy, washout completed for perforated appendicitis on 11/18/24 He reports overall good health, with mild pain when bending over for extended periods. He has been able to maintain a regular diet, focusing on healthier choices with less greasy and processed foods. His bowel movements are normal, and he has resumed his usual activities, including morning stretches. He has no current concerns or questions. He is seeking a release form to return to work. PHYSICAL EXAM Gastrointestinal: Abdomen appears healthy with no signs of infection or complications. ROS Review of Systems Systems Reviewed: All systems reviewed, normal except as documented Objective/Exam General General Appearance: alert, cooperative and well groomed Resp Respiratory exam: Absent respiratory distress Abdominal Abdominal exam: Present soft and incision (no erythema, no fluctuance, incisions well-healed); Absent distention or tenderness Assessment & Plan Diagnosis / Problem List (1) Perforated appendicitis: Status: Acute Assessment & Plan: Recovery from laparoscopy is progressing well, with no tenderness reported. The patient is advised to continue with a healthier diet, and I recommended colonoscopy as soon as 02/2025 due to the increased likelihood of polyps in adults with a history of appendicitis. We did also discuss the possibility of interval appendectomy; I explained that he has an approximately 25% chance of recurrence of appendicitis which tends to happen within the first 6 months. As he did not have an appendicolith on his CT with contrast I explained that interval appendectomy is not mandatory and pt ultimately prefers to avoid surgery if possible. He would like to talk with his PCP about colonoscopy and will reach out later this year to discuss with me further Office Procedures GNS Level of Care Nursing/Assessment Patient Status: Established Patient Nursing Assessment/Reassesment: Medication Reconciliation, Update PMH in EMR and Vital Signs Coordination of Care: Complex Care and Chronic Disease 1-5, Education Complex Pt/Fam, Consent,records obtained, informed consent, Results/Orders obtained and Staff clarify orders Established Patient Charge Established Patient Point Assignment: 95 Established Patient Point Charge: EP Level 3 (80-115) Patient Portal Questionaires Social History Tobacco History Smoking Status: Never smoker Domestic Abuse History Do You Feel Safe at Home: Yes Review of Systems Report any current symptoms Only answer those that you have currently: Past Medical History Past Medical History Have you ever been diagnosed with any of the following: Neurological Problems Seizures: No Cardiology Problems Congestive Heart Failure: No Respiratory Problems Chronic Obstructive Pulmonary Disease (COPD): No Asthma: No Genital/Urinary Problems Renal Disease: No Endocrine Problems Diabetes Mellitus Type 1: No Diabetes Mellitus Type 2: No Blood Problems Sickle Cell Disease: No Other Problems Blood Transfusions: No Blood Transfusion Reaction: No Anesthesia Reactions: No
== END 2024-12-30 09:47 | disposition home or self-care (01) ==
LOC: HODSRG 09:21
PROVIDERS: PCP Physician Assistant Medical; Referring Provider Physician Assistant Medical; Supervising Provider Surgery; Visit Provider Surgery
DX: Z48.815 Encounter for surgical aftercare following surgery on the digestive system (principal)
CPT/HCPCS: 99213; G0463